=== PATIENT | male | born 1990 | race African-American/Black ===

== ENCOUNTER 2017-07-13 14:53 | Emergency (ER) | payer OTHER ==
[~2017-07-13] VITALS: Ht 172.7 cm; Wt 77.1 kg
[2017-07-13 15:34] LABS: HEMATOCRIT 48.9 % (42.0-52.0); HEMOGLOBIN 16.6 gm/dL (14.0-18.0); MCH 31.7 pg (26.0-34.0); MCHC 33.9 g/dL (28.0-37.0); MCV 93.4 fL (80.0-100.0); RBC 5.23 mil/uL (4.50-6.00); RDW 13.4 % (10.5-14.5); WBC 10.9 thou/uL (4.0-11.0)
[2017-07-13 15:49] LABS: CALCIUM 8.4 mg/dL (8.5-10.1); CREATININE 1.2 mg/dL (0.7-1.3); POTASSIUM 4.3 mmol/L (3.5-5.1)
[2017-07-13 18:20] LABS: AMP/METHAMP POSITIVE (Negative); BARBITURATES Negative (Negative); BENZODIAZEPINES Negative (Negative); COCAINE Negative (Negative); METHADONE Negative (Negative); OPIATES Negative (Negative); PCP POSITIVE (Negative); THC POSITIVE (Negative)
[2017-07-13 19:09] VITALS: BP 118/82
== END 2017-07-13 19:10 | disposition home or self-care (01) ==
LOC: ER 14:53
PROVIDERS: Physician Assistant
DX: F10.129 Alcohol abuse with intoxication, unspecified (principal); F12.10 Cannabis abuse, uncomplicated; F15.10 Other stimulant abuse, uncomplicated; F16.10 Hallucinogen abuse, uncomplicated; Z63.9 Problem related to primary support group, unspecified; Y90.6 Blood alcohol level of 120-199 mg/100 ml